=== PATIENT | female | born 1955 | race Caucasian/White ===

== ENCOUNTER 2019-03-18 13:02 | Emergency (ER) | payer MEDICAID ==
[~2019-03-18] VITALS: Ht 152.4 cm; Wt 64.9 kg
[2019-03-18 13:38] VITALS: BP 138/80
--- NOTE | 2019-03-18 13:42 | NUR ---
PT TO [facility]. VS STABLE
--- NOTE | 2019-03-18 14:38 | NUR ---
PT AMB TO [facility]
--- NOTE | 2019-03-18 14:50 | NUR ---
63/F C/O CONSTANT, PROGRESSIVELY WORSENING R SHOULDER PAIN WITH DECREASED ROM X JANUARY. DENIES INJURY. TAKING IBUPROFEN AT HOME WITH SOME RELIEF, REQUIRING HIGHER DOSAGES. HAS NOT HAD IMAGING OR SEEN PCP/SPECIALIST OUTPT. [facility]- DENIES RX- IBUPROFEN
--- NOTE | 2019-03-18 15:03 | NUR ---
PT BACK FROM XRAY VIA W/C
--- NOTE | 2019-03-18 15:31 | NUR ---
PA MCFADDEN EVALUATING PT AT THIS TIME
[2019-03-18] MEDS ORDERED: KETOROLAC 60 MG/2 ML VIAL IM ONE (15:35)
--- NOTE | 2019-03-18 15:36 | NUR ---
EMT AT BEDSIDE FOR APPLICATION OF SLING
--- NOTE | 2019-03-18 16:01 | NUR ---
NOEMY MCFADDEN SPEAKING WITH PT & DAUGHTER IN LAW
[2019-03-18 16:06] VITALS: BP 138/80
--- NOTE | 2019-03-18 16:12 | NUR ---
Patient discharged with v/s stable. Written and verbal after care instructions given and explained. Patient/DAUGHTER IN LAW alert, oriented and verbalized understanding of instructions. Ambulatory with steady gait. All questions addressed prior to discharge. ID band removed. Patient advised to follow up with PMD. Rx of IBPROFEN given. Patient/DAUGHTER IN LAW educated on indication of medication including possible reaction and side effects. Opportunity to ask questions provided and answered.
== END 2019-03-18 16:12 | disposition home or self-care (01) ==
LOC: MED 13:02
DX: M25.511 Pain in right shoulder (principal)
CPT/HCPCS: 73030; 96372; 99283; J1885